=== PATIENT | female | born 1990 | race Caucasian/White ===

== ENCOUNTER 2022-10-21 20:27 | Emergency (ER) | payer OTHER ==
[2022-10-21 20:30] VITALS: BP 157/78; PULSE 92; RESP 18; TEMP 98.1; BMI 22.8
[2022-10-21] MEDS ORDERED: IBUPROFEN 600 MG TABLET (FP) PO ONE ×2 (21:53→21:55)
== END 2022-10-21 22:39 | disposition home or self-care (01) ==
LOC: JERFT 20:27
DX: R05.1 Acute cough (principal); R09.81 Nasal congestion; J06.9 Acute upper respiratory infection, unspecified
CPT/HCPCS: 0241U-QW; 71046-TC-FY; 99284-25